=== PATIENT | female | born 1990 | race Caucasian/White ===

== ENCOUNTER → 2022-11-04 10:01 | Outpatient (CLI) | payer BC, SELFPAY ==
--- NOTE | ~2022-11-04 | US_ITS ---
US abdomen limited DATE: 11/04/2022 11:16 INDICATION: Elevated serum liver enzymes TECHNIQUE: Real-time imaging of liver, pancreas, gallbladder COMPARISON: None FINDINGS: There is hepatic steatosis. There is an approximately 1 cm hepatic cyst. Normal hepatopedal portal venous flow direction. No gallstones or gallbladder wall thickening or abnormal pericholecystic fluid collection. Negative s onographic Samson's sign. The common bile duct measures 4.8 mm, normal. No pancreatic mass lesion is detected. No pancreatic duct dilatation. IMPRESSION: Hepatic steatosis 1 cm hepatic cyst Reviewed, dictated and finalized at [facility]. Reviewed, dictated and finalized at [facility]. [employer]
== END ==
PROVIDERS: PCP Nurse Practitioner Family; Visit Provider Nurse Practitioner Family
DX: K76.0 Fatty (change of) liver, not elsewhere classified (principal); K76.89 Other specified diseases of liver
CPT/HCPCS: 76705

== ENCOUNTER → 2022-12-09 13:18 | Outpatient (CLI) | payer BC, SELFPAY ==
--- NOTE | ~2022-12-09 | CT_ITS ---
EXAMINATION: CT abdomen pelvis wo con DATE: 12/09/2022 13:32 INDICATION: Abdominal pain and hematuria TECHNIQUE: Computed tomography (CT) of the abdomen and pelvis was performed without intravenous contr ast. Automated exposure control and iterative reconstruction technique were employed. The dose-length product was 1150.95 mGy-cm. COMPARISON: None FINDINGS: 3 mm pleural-based nodule in the posterior right lower lobe. Heart size normal. No pericardial or ple ural effusion. Diffuse hepatic steatosis with focal sparing along the gallbladder fossa. 1 cm low-att enuation likely cyst or hemangioma at the dome of the liver. More caudally in the right hepatic lobe is a more subtle 1.2 cm nodule of slightly higher density than surrounding fatty liver. Gallbladder, spleen, pancreas and bilateral adrenal glands are normal. 4 x 2 mm stone at the left ureterovesicular junction. Kidneys and ureters are otherwise normal with no other urolithiasis. No hydronephrosis. Bl adder is otherwise normal. 2 cm right adnexal cyst. Anteverted uterus and left adnexa are unremarkabl e. Bowels including the appendix are normal. No free intraperitoneal gas or fluid. No pathologically enlarged abdominal or pelvic lymphadenopathy. Bones are unremarkable. IMPRESSION: 1. 4 x 2 mm stone at the left ureterovesicular junction without hydronephrosis. 2. Diffuse hepatic steatosis with indeterminate 1.2 cm nodules in the right hepatic lobe. Recommend f urther evaluation with pre and postcontrast MRI. 3. Small sliding-type hiatal hernia. Reviewed, dictated and finalized at [facility]. [employer] TECHNICIAN IMPRESSION: 1. 4 x 2 mm stone at the left ureterovesicular junction without hydronephrosis. 2. Diffuse hepatic steatosis with indeterminate 1.2 cm nodules in the right hep atic lobe. Recommend further evaluation with pre and postcontrast MRI. 3. Small sliding-type hiatal hernia.
== END ==
PROVIDERS: PCP Nurse Practitioner Family; Visit Provider Nurse Practitioner Family
DX: R10.9 Unspecified abdominal pain (principal); R31.9 Hematuria, unspecified; K44.9 Diaphragmatic hernia without obstruction or gangrene; K76.0 Fatty (change of) liver, not elsewhere classified; N20.1 Calculus of ureter
CPT/HCPCS: 74176

== ENCOUNTER 2022-12-21 12:46 | Outpatient (CLI) | payer BC, SELFPAY ==
[2022-12-28 10:41] LABS: CALR Exon 9 Mutation Not Detected (Not Detected); CSF3R Exon 14/17 Mutation Not Detected (Not Detected); JAK2 Exon 12 Mutation Not Detected (Not Detected); JAK2 V617F Mutation Not Detected (Not Detected); MPL Exon 10 Mutation Not Detected (Not Detected); Specimen Source Blood
== END 2022-12-21 12:47 | disposition home or self-care (01) ==
LOC: ANHLAB 12:48
PROVIDERS: PCP Nurse Practitioner Family; Visit Provider Internal Medicine Hematology & Oncology
DX: D47.3 Essential (hemorrhagic) thrombocythemia (principal)
CPT/HCPCS: 36415; 81219; 81270; 81279; 81339; 81479

== ENCOUNTER → 2023-01-04 10:40 | Outpatient (CLI) | payer BC, SELFPAY ==
--- NOTE | ~2023-01-04 | MR_ITS ---
EXAMINATION: MR abdomen wo/w con DATE: 01/04/2023 11:27 INDICATION: Liver nodule TECHNIQUE: Magnetic resonance imaging (MRI) of the abdomen was performed without and with 20 mL Multi saúl intravenous contrast. Sequences included coronal T2-weighted SS-FSE, coronal and axial FS 2D-F IESTA, axial STIR FSE, axial T2-weighted SS-FSE, axial T2-weighted FS SS-FSE, axial diffusion-weighte d SE, axial dual-echo T1-weighted FSPGR, and axial and coronal T1-weighted LAVA. Postcontrast axial T 1-weighted LAVA images were obtained in a time course. Postcontrast coronal T1-weighted LAVA images w ere obtained. COMPARISON: CT dated 12/09/2022 FINDINGS: Heart size is normal. No pericardial or pleural effusion. Diffuse hepatic steatosis. 1.2 cm T2 hyperi ntense nonenhancing cyst at the dome of the liver. Additional well-defined 1.2 cm lesion in the right hepatic lobe which is mildly T1 hyperintense which is more conspicuous on the opposed phase and fat saturated images. The lesion is occult on T2-weighted and restricted diffusion-weighted imaging which argues against hemangioma. There is prominent enhancement on the portal venous phase which persists without evident washout on the 5 and 10 minute delayed images. Gallbladder, spleen, pancreas, bilater al adrenal glands and kidneys are normal. Visualized portion of the bowels are normal with no obstruc tion. No pathologically enlarged abdominal lymphadenopathy. Normal bone marrow signal throughout. IMPRESSION: 1. Indeterminate 1.2 cm lesion in the right hepatic lobe with homogeneous flash filling arterial/jeovany y portal venous phase enhancement and without evident washout on delayed imaging which along with pat ient age would favor a benign etiology such as focal nodular hyperplasia or hepatic adenoma. In a typ ical low risk patient this requires no further follow-up. If there is history of prior malignancy or the patient has history of known liver disease or other cause of elevated risk for primary liver canc er, would then consider further evaluation with either 3-6 month follow-up MRI or percutaneous biopsy . Reviewed, dictated and finalized at [facility]. IMPRESSION: 1. Indeterminate 1.2 cm lesion in the right hepatic lobe with homogeneous flash filling arterial/early portal venous phase enhancement and without evident was hout on delayed imaging which along with patient age would favor a benign etiol ogy such as focal nodular hyperplasia or hepatic adenoma. In a typical low risk patient this requires no further follow-up. If there is history of prior malig mickie or the patient has history of known liver disease or other cause of eleva gustavo risk for primary liver cancer, would then consider further evaluation with either 3-6 month follow-up MRI or percutaneous biopsy.
== END ==
PROVIDERS: PCP Nurse Practitioner Family; Visit Provider Nurse Practitioner Family
DX: K76.89 Other specified diseases of liver (principal)
CPT/HCPCS: 74183; A9577

== ENCOUNTER → 2023-01-31 11:11 | Outpatient (CLI) | payer BC, SELFPAY ==
--- NOTE | ~2023-01-31 | XR_ITS ---
XR abdomen/kub 1V 01/31/2023 11:29 INDICATION: Flank pain TECHNIQUE: KUB COMPARISON: None FINDINGS: Bowel gas pattern is normal. There is no evidence of free air, mass, organomegaly, ascites or obstruction. No abnormal calculi are seen. The bones appear intact. IMPRESSION: 1: No acute abdominal abnormality identified. Reviewed, dictated and finalized at [facility].
== END ==
PROVIDERS: PCP Nurse Practitioner Family; Visit Provider Nurse Practitioner Family
DX: N20.0 Calculus of kidney (principal)
CPT/HCPCS: 74018

== ENCOUNTER 2023-03-23 11:07 | Outpatient (CLI) | payer BC, SELFPAY ==
[2023-03-23 11:19] LABS: Basophils Absolute Auto 0.1 K/mm3 (0.0-0.1); Basophils Percent Auto 0.6 % (0.2-1.2); Eosinophils Absolute Auto 0.3 K/mm3 (0-0.3); Eosinophils Percent Auto 2.5 % (0-4.4); Hematocrit 40.4 % (37.0-47.0); Immature Granulocyte Absolute 0.03 K/mm3 (0.00-0.031); Immature Granulocyte Percent A 0.3 % (0-0.5); Lymphocytes Absolute Auto 3.29 K/mm3 (0.9-3.2); Mean Corpuscular HGB Conc 32.2 g/dl (32-36); Mean Corpuscular Hemoglobin 28.3 pg (26-34); Mean Platelet Volume 8.3 fl (7.4-10.4); Monocytes Absolute Auto 0.8 K/mm3 (0.1-0.6); Monocytes Percent Auto 7.4 % (2.6-8.5); Neutrophils Absolute Auto 6.8 K/mm3 (1.3-6.7); Neutrophils Percent Auto 60.2 % (45.5-73.1); Platelet Count Result 479 k/mm3 (150-375); Red Blood Count 4.59 M/mm3 (4.2-5.4); Red Cell Distribution Width 12.9 % (11.5-14.5); White Blood Count 11.3 K/mm3 (4.5-10.0)
== END 2023-03-23 11:08 | disposition home or self-care (01) ==
LOC: ANHLAB 11:09
PROVIDERS: PCP Nurse Practitioner Family; Visit Provider Internal Medicine Hematology & Oncology
DX: D47.3 Essential (hemorrhagic) thrombocythemia (principal)
CPT/HCPCS: 36415; 85025

== ENCOUNTER 2023-10-06 11:00 | Outpatient (CLI) | payer BC, SELFPAY ==
[2023-10-06 11:17] LABS: Basophils Absolute Auto 0.1 K/mm3 (0.0-0.1); Basophils Percent Auto 0.7 % (0.2-1.2); Eosinophils Absolute Auto 0.3 K/mm3 (0-0.3); Eosinophils Percent Auto 3.6 % (0-4.4); Hematocrit 42.2 % (37.0-47.0); Hemoglobin 13.8 g/dL (12.0-15.0); Immature Granulocyte Absolute 0.01 K/mm3 (0.00-0.031); Immature Granulocyte Percent A 0.1 % (0-0.5); Lymphocytes Absolute Auto 3.12 K/mm3 (0.9-3.2); Mean Corpuscular HGB Conc 32.7 g/dl (32-36); Mean Corpuscular Volume 85.6 fl (80-100); Mean Platelet Volume 8.2 fl (7.4-10.4); Monocytes Absolute Auto 0.6 K/mm3 (0.1-0.6); Monocytes Percent Auto 7.1 % (2.6-8.5); Neutrophils Absolute Auto 4.2 K/mm3 (1.3-6.7); Neutrophils Percent Auto 50.5 % (45.5-73.1); Platelet Count Result 500 k/mm3 (150-375); Red Blood Count 4.93 M/mm3 (4.2-5.4); Red Cell Distribution Width 13.2 % (11.5-14.5); White Blood Count 8.2 K/mm3 (4.5-10.0)
[2023-10-06 11:21] LABS: Blood Urea Nitrogen 13 mg/dL (8-26); Carbon Dioxide 25 mmol/L (22-30); Chloride 102 mmol/L (98-109); Estimated Glomerular Filt Rate > 60; Glucose 99 mg/dL (70-105); Ionized Calcium (POC) 1.41 mmol/L (1.11-1.31); Potassium 4.3 mmol/L (3.5-4.9); Sodium 139 mmol/L (138-146)
[2023-10-06 16:44] LABS: Alanine Aminotransferase 45 U/L (6-35); Albumin Level 4.6 g/dL (3.5-5.1); Alkaline Phosphatase 73 U/L (38-126); Anion Gap 12 mmol/L (8-16); Aspartate Amino Transferase 34 U/L (14-36); Bilirubin,Total 0.4 mg/dL (0.2-1.3); Blood Urea Nitrogen 13 mg/dL (7-17); Calcium 11.3 mg/dL (8.4-10.2); Carbon Dioxide 24 mmol/L (22-30); Chloride 102 mmol/L (98-107); Estimated Glomerular Filt Rate > 60; Glucose 90 mg/dL (65-110); Potassium 4.6 mmol/L (3.4-5.0); Sodium 138 mmol/L (137-145)
== END 2023-10-06 11:01 | disposition home or self-care (01) ==
PROVIDERS: PCP Nurse Practitioner Family; Visit Provider Internal Medicine Hematology & Oncology
DX: D47.3 Essential (hemorrhagic) thrombocythemia (principal)
CPT/HCPCS: 36415; 80047; 80053; 85025

== ENCOUNTER 2023-12-06 12:32 | Outpatient (CLI) | payer BC, SELFPAY ==
[2023-12-06 12:47] LABS: Basophils Absolute Auto 0.1 K/mm3 (0.0-0.1); Basophils Percent Auto 0.5 % (0.2-1.2); Eosinophils Absolute Auto 0.4 K/mm3 (0-0.3); Eosinophils Percent Auto 4.2 % (0-4.4); Hematocrit 40.3 % (37.0-47.0); Hemoglobin 13.1 g/dL (12.0-15.0); Immature Granulocyte Absolute 0.02 K/mm3 (0.00-0.031); Immature Granulocyte Percent A 0.2 % (0-0.5); Lymphocytes Absolute Auto 3.38 K/mm3 (0.9-3.2); Lymphocytes Percent Auto 37.1 % (18.3-44.2); Mean Corpuscular HGB Conc 32.5 g/dl (32-36); Mean Corpuscular Hemoglobin 28.1 pg (26-34); Mean Corpuscular Volume 86.5 fl (80-100); Mean Platelet Volume 8.4 fl (7.4-10.4); Monocytes Absolute Auto 0.7 K/mm3 (0.1-0.6); Monocytes Percent Auto 7.4 % (2.6-8.5); Neutrophils Absolute Auto 4.6 K/mm3 (1.3-6.7); Neutrophils Percent Auto 50.6 % (45.5-73.1); Platelet Count Result 500 k/mm3 (150-375); Red Blood Count 4.66 M/mm3 (4.2-5.4); Red Cell Distribution Width 13.5 % (11.5-14.5); White Blood Count 9.1 K/mm3 (4.5-10.0)
== END 2023-12-06 12:33 | disposition home or self-care (01) ==
LOC: ANHLAB 12:33
PROVIDERS: Nurse Practitioner Family; PCP Nurse Practitioner Family; Visit Provider Internal Medicine Hematology & Oncology
DX: D75.838 Other thrombocytosis (principal)
CPT/HCPCS: 36415; 85025

== ENCOUNTER 2024-04-06 09:46 | Outpatient (CLI) | payer BC, SELFPAY ==
[2024-04-06 10:15] LABS: Basophils Absolute Auto 0.1 K/mm3 (0.0-0.1); Basophils Percent Auto 0.7 % (0.2-1.2); Eosinophils Absolute Auto 0.5 K/mm3 (0-0.3); Eosinophils Percent Auto 5.8 % (0-4.4); Hematocrit 42.1 % (37.0-47.0); Hemoglobin 13.8 g/dL (12.0-15.0); Immature Granulocyte Absolute 0.02 K/mm3 (0.00-0.031); Immature Granulocyte Percent A 0.2 % (0-0.5); Lymphocytes Percent Auto 33.9 % (18.3-44.2); Mean Corpuscular HGB Conc 32.8 g/dl (32-36); Mean Corpuscular Hemoglobin 28.5 pg (26-34); Mean Corpuscular Volume 86.8 fl (80-100); Mean Platelet Volume 8.3 fl (7.4-10.4); Monocytes Absolute Auto 0.4 K/mm3 (0.1-0.6); Monocytes Percent Auto 5.1 % (2.6-8.5); Neutrophils Absolute Auto 4.5 K/mm3 (1.3-6.7); Neutrophils Percent Auto 54.3 % (45.5-73.1); Platelet Count Result 502 k/mm3 (150-375); Red Blood Count 4.85 M/mm3 (4.2-5.4); Red Cell Distribution Width 13.1 % (11.5-14.5); White Blood Count 8.3 K/mm3 (4.5-10.0)
[2024-04-06 16:31] LABS: Iron 62 ug/dL (37-170)
[2024-04-06 16:39] LABS: Anion Gap 9 mmol/L (4-12); Blood Urea Nitrogen 14 mg/dL (7-17); Carbon Dioxide 23 mmol/L (22-30); Chloride 104 mmol/L (98-107); Estimated Glomerular Filt Rate > 60; Glucose 142 mg/dL (65-110); Potassium 4.9 mmol/L (3.4-5.0); Sodium 136 mmol/L (137-145)
[2024-04-06 16:41] LABS: Percent Iron Saturation 17 % (20-50)
== END 2024-04-06 09:47 | disposition home or self-care (01) ==
LOC: ANHLAB 09:48
PROVIDERS: Nurse Practitioner Family; PCP Nurse Practitioner Family; Visit Provider Internal Medicine Hematology & Oncology
DX: D75.838 Other thrombocytosis (principal)
CPT/HCPCS: 36415; 80048; 82728; 83540; 83550; 85025